=== PATIENT | female | born 2000 | race Caucasian/White ===

== ENCOUNTER 2020-11-11 07:10 | Outpatient (CLI) | payer BC, SELFPAY ==
--- NOTE | ~2020-11-11 | MR_ITS ---
EXAMINATION: MR cervical spine wo con DATE: 11/11/2020 08:34 INDICATION: Neck pain. TECHNIQUE: Magnetic resonance imaging (MRI) of the cervical spine was performed without intravenous c ontrast. Sequences included sagittal T2-weighted FSE, sagittal STIR FSE, sagittal T1-weighted FSE, ax ial MERGE, and axial T2-weighted FSE. COMPARISON: None FINDINGS: Bone alignment is normal. Vertebral body heights and intervertebral disc heights are normal . The spinal cord signal intensity is normal. The following disc levels are specifically discussed: C2-C3: The disc does not extend beyond the endplate margin. There is no uncovertebral joint osteoarth ritis. There is mild bilateral facet joint osteoarthritis. There is no neural foraminal stenosis. The re is no central canal stenosis. C3-C4: The disc does not extend beyond the endplate margin. There is mild right uncovertebral joint o steoarthritis. There is no facet joint osteoarthritis. There is mild right neural foraminal stenosis. There is no central canal stenosis. C4-C5: The disc does not extend beyond the endplate margin. There is mild left uncovertebral joint os teoarthritis. There is no facet joint osteoarthritis. There is no neural foraminal stenosis. There is no central canal stenosis. C5-C6: The disc does not extend beyond the endplate margin. There is no uncovertebral joint osteoarth ritis. There is no facet joint osteoarthritis. There is no neural foraminal stenosis. There is no akbar tral canal stenosis. C6-C7: The disc does not extend beyond the endplate margin. There is no uncovertebral joint osteoarth ritis. There is no facet joint osteoarthritis. There is no neural foraminal stenosis. There is no akbar tral canal stenosis. C7-T1: The disc does not extend beyond the endplate margin. There is no uncovertebral joint osteoarth ritis. There is mild left facet joint osteoarthritis. There is mild left neural foraminal stenosis. T here is no central canal stenosis. IMPRESSION: 1. Mild cervical spondylosis. Reviewed, dictated and finalized at location D.
--- NOTE | ~2020-11-11 | MR_ITS ---
EXAMINATION: MR brain/brain stem wo con DATE: 11/11/2020 08:12 INDICATION: Posterior headache. TECHNIQUE: Magnetic resonance imaging (MRI) of the brain and brainstem was performed without intraven ous contrast. Sequences included sagittal and axial T1-weighted FSE, axial diffusion-weighted FS EPI, axial T2*-weighted GRE, axial T2-weighted FLAIR Propeller, and axial T2-weighted Propeller. Apparent diffusion coefficient (ADC) maps were created. COMPARISON: None. FINDINGS: There is no intracranial hemorrhage, acute infarction, or abnormal intracranial mass lesion . The ventricles are normal in size. There is mild mucosal thickening in the ethmoid sinuses. The orb its are normal. The mastoid air cells are normal. IMPRESSION: 1. Normal brain. Reviewed, dictated and finalized at location D. IMPRESSION: 1. Normal brain.
== END 2020-11-11 07:11 | disposition home or self-care (01) ==
LOC: ANHIMG 07:21
PROVIDERS: PCP Internal Medicine; Visit Provider Nurse Practitioner Family
DX: M54.2 Cervicalgia (principal); G44.329 Chronic post-traumatic headache, not intractable; M79.18 Myalgia, other site; M47.812 Spondylosis without myelopathy or radiculopathy, cervical region
CPT/HCPCS: 70551; 72141

== ENCOUNTER 2021-03-30 15:46 | Emergency (ER) | payer BC, SELFPAY ==
[2021-03-30 16:05] VITALS: BP 129/76; PULSE 82; RESP 16; TEMP 36.8; O2SAT 100
--- NOTE | 2021-03-30 16:25 | ED.URI ---
HPI - URI/Sore Throat General Chief Complaint: Upper Respiratory Infection Stated Complaint: Sore Throat Time Seen by Provider: 03/30/21 16:25 Source: patient Mode of arrival: ambulatory Limitations: no limitations History of Present Illness HPI Narrative: Coni Perez is a 20 yo female with PMH of asthma who comes here with sore throat and requesting a strep test and a work note. States that she woke up with feeling like her right tonsil swollen. She is afebrile looks quite healthy but was not vaccinated for Covid Related Data Home Medications Medication Instructions Recorded Confirmed escitalopram oxalate [Lexapro] 20 mg PO DAILY 03/30/21 03/30/21 Allergies Allergy/AdvReac Type Severity Reaction Status Date / Time No Known Allergies Allergy Unverified 08/30/12 14:39 Review of Systems Review of Systems: CONSTITUTIONAL: Denies fever, chills, sweats. EYES: Denies visual changes, redness, discharge. ENT: Denies rhinorrhea, congestion, has sore throat, otalgia. CARDIOVASCULAR: Denies chest pain, palpitations, edema. RESPIRATORY: Denies dyspnea, wheezing, cough GASTROINTESTINAL: Denies abdominal pain, nausea, vomiting, diarrhea. GENITOURINARY: Denies dysuria, hematuria, abnormal discharge SKIN: Denies rash or itching. NEUROLOGIC: Denies numbness, or focal weakness. PSYCHIATRIC: Denies anxiety or depression. PMFSH Past Medical History Medical History No acute medical problems Family History Family History (Updated 03/30/21 @ 16:37 by Stephany Greenberg CNP) Father Hypertension Heart palpitations Other Heart disease Social History Social History (Updated 03/30/21 @ 16:37 by Stephany Greenberg CNP) Smoking status: Current every day smoker Tobacco type: e-cigarettes/vaping Alcohol intake: current Comments At time of signature, I agree with nursing past medical, surgical, social and family history. There is no relevant family history pertinent to the presenting complaint. Exam Narrative: GENERAL: This is a well-nourished, well-developed patient, no distress. HEAD: normocephalic, atraumatic. EYES: Sclera clear/white. Vision is grossly intact. EARS: External ears normal, auditory canals clear and without drainage, . Hearing grossly intact. NOSE: External nose normal without nasal discharge, nares without redness, no rhinorrhea. THROAT: Mucous membranes moist, posterior pharynx mild erythema no edema NECK: Neck supple, CARDIOVASCULAR: Regular rate and rhythm without murmurs, gallops, or rubs. RESPIRATORY: Clear to auscultation. Breath sounds equal bilaterally. No wheezes, rales, or rhonchi. GASTROINTESTINAL: Abdomen soft, non-tender, SKIN: warm, intact with no suspicious lesions or rash, good texture and turgor. NEURO: awake, alert, and oriented to person, place and time. There were no obvious focal neurologic abnormalities. Steady gait EXTREMITIES: Normal range of motion. BACK: Nontender without deformity Course Course Emergency Course: Patient comes here for complaints of sore throat Strep is negative Rapid Covid is negative Patient looks very healthy with no respiratory symptoms Given 1 day work note Vital Signs Vital signs: Vital Signs Temperature 98.2 F 03/30/21 16:05 Pulse Rate 82 03/30/21 16:05 Respiratory Rate 16 03/30/21 16:05 Blood Pressure 129/76 03/30/21 16:05 Pulse Oximetry 100 03/30/21 16:05 Temperature 98.2 F 03/30/21 16:05 Pulse Rate 82 03/30/21 16:05 Respiratory Rate 16 03/30/21 16:05 Blood Pressure 129/76 03/30/21 16:05 Pulse Oximetry 100 03/30/21 16:05 MDM - URI/Sore Throat Differential Diagnosis Differential diagnosis: Likely upper respiratory infection, otitis media, viral infection, influenza and other Lab Data Labs: Lab Results 03/30/21 Range/Units 16:13 POC SARS CoV-2 Ag Negative (Negative) Strep Screen Presumptive Negati
== END 2021-03-30 16:55 | disposition home or self-care (01) ==
PROVIDERS: Emergency Provider Nurse Practitioner; PCP Internal Medicine
DX: J02.9 Acute pharyngitis, unspecified (principal); Z20.822 Contact with and (suspected) exposure to COVID-19; F17.200 Nicotine dependence, unspecified, uncomplicated
CPT/HCPCS: 87081; 87426; 87880; 99213; C9803; G0463

== ENCOUNTER 2022-06-29 15:32 | Emergency (ER) | payer BC, SELFPAY ==
--- NOTE | ~2022-06-29 | XR_ITS ---
XR foot LT min 3V 06/29/2022 17:31 Indication: Left fifth toe pain Procedure: 4 views left foot Comparison: No prior studies for comparison. Findings: There is a transverse fracture of the left fifth proximal phalanx with mild lateral angulat ion. No other fracture. No significant soft tissue abnormality. No foreign bodies. Lisfranc joint int act. Impression: 1: Nondisplaced transverse fracture left fifth proximal phalanx with lateral angulation. Reviewed, dictated and finalized at location A. A[employer] CL[employer]ICAL DIETICIAN Impression: 1: Nondisplaced transverse fracture left fifth proximal phalanx with lateral an gulation.
[2022-06-29 15:42] VITALS: BP 139/82; PULSE 92; RESP 16; TEMP 36.5; O2SAT 100
--- NOTE | 2022-06-29 17:44 | ED.LOWEXIN ---
HPI - Extremity Injury (Lower) General Chief Complaint: Extremity Injury, Lower Stated Complaint: left foot injury Time Seen by Provider: 06/29/22 16:04 History of Present Illness HPI Narrative: 21-year-old female presents to the emergency room for evaluation of left foot pain. Patient states that she was leaving her bedroom this afternoon stubbed her toe on the door frame. Immediately noticed swelling and bruising to her fifth toe. Pain radiates into her midfoot. Related Data Allergies Allergy/AdvReac Type Severity Reaction Status Date / Time No Known Allergies Allergy Unverified 08/30/12 14:39 Review of Systems Review of Systems: CONSTITUTIONAL: Denies fever, chills, or sweats. EYES: Denies visual changes, redness, or discharge. ENT: Denies rhinorrhea, congestion, sore throat, or otalgia. CARDIOVASCULAR: Denies chest pain, palpitations, or edema. RESPIRATORY: Denies cough or dyspnea. GASTROINTESTINAL: Denies abdominal pain, nausea, vomiting, or diarrhea. GENITOURINARY: Denies dysuria or hematuria. SKIN: Denies rash or itching. MUSCULOSKELETAL: Denies back pain, joint pain, or myalgia. NEUROLOGIC: Denies headache, numbness, dizziness, or weakness. PSYCHIATRIC: Denies anxiety or depression. [facility] Past Medical History Medical History No acute medical problems Family History Family History Father Hypertension Heart palpitations Other Heart disease Social History Social History Smoking status: Current every day smoker Tobacco type: e-cigarettes/vaping Alcohol intake: current Exam Narrative: GENERAL: Well-appearing, well-nourished, no physical limitations, and in no acute distress. HEAD: Normocephalic, atraumatic. EYES: Conjunctivae normal, PERRLA and EOMI. CHEST: Clear to auscultation. No respiratory distress. No wheezes rales or rhonchi. HEART: Regular rate and rhythm. No murmur heard. Normal peripheral pulses. EXTREMITIES: left 5th toe: +TTP to proximal phalanx with STS, and mild displacement. Neurovascular is intact distally. LROM d/t pain SKIN: Warm, dry, no rash. No noted wounds NEURO: No focal deficits. Alert and oriented x3. MAEW. CN's II-XI intact bilaterally, normal gait PSYCH: Cooperative. Normal mood and affect. Course Vital Signs Vital signs: Vital Signs Temperature 36.5 C 06/29/22 15:42 Pulse Rate 92 06/29/22 15:42 Respiratory Rate 16 06/29/22 15:42 Blood Pressure 139/82 06/29/22 15:42 Pulse Oximetry 100 06/29/22 15:42 Oxygen Delivery Room Air 06/29/22 15:42 Temperature 36.5 C 06/29/22 15:42 Pulse Rate 92 06/29/22 15:42 Respiratory Rate 16 06/29/22 15:42 Blood Pressure 139/82 06/29/22 15:42 Pulse Oximetry 100 06/29/22 15:42 Oxygen Delivery Room Air 06/29/22 15:42 Discharge Plan Discharge Clinical Impression: Fracture of right toe Patient Disposition: Home, Self-Care Condition: Stable Instructions: Antibiotic Form Additional Instructions: Wear Ortho shoe for comfort. Follow-up with Dr. Rincon, the contract mail carrier next week. Keep toes wilver taped while you are using the Ortho shoe. May take Tylenol and ibuprofen as needed for discomfort. Prescriptions: No Action escitalopram oxalate [Lexapro] 10 mg tablet 10 mg PO DAILY Qty: 90 0RF Rx Instructions: Take one tablet po qd x 2 weeks, then increase to 2 tablets po qd Follow-up/Referrals: Sp Rincon DPM [Physician] - PHYSICIAN NOT ON STAFF,NONSTAFF [Primary Care Provider] - Time of Disposition: 17:53
== END 2022-06-29 18:26 | disposition home or self-care (01) ==
PROVIDERS: Emergency Provider Nurse Practitioner Family
DX: S92.515A Nondisplaced fracture of proximal phalanx of left lesser toe(s), initial encounter for closed fracture (principal); F17.290 Nicotine dependence, other tobacco product, uncomplicated; W22.09XA Striking against other stationary object, initial encounter
CPT/HCPCS: 73630; 99284

== ENCOUNTER 2022-07-10 11:30 | Emergency (ER) | payer BC, SELFPAY ==
--- NOTE | 2022-07-10 11:54 | PC.NURSE ---
pt states she is going to go home and return if her foot gets any worse
== END 2022-07-10 11:54 | disposition left against medical advice (07) ==
DX: Z53.21 Procedure and treatment not carried out due to patient leaving prior to being seen by health care provider (principal)
CPT/HCPCS: 99199

== ENCOUNTER 2022-07-12 11:32 | Emergency (ER) | payer BC, SELFPAY ==
--- NOTE | 2022-07-12 11:34 | ED.URI ---
HPI - URI/Sore Throat General Chief Complaint: Upper Respiratory Infection Stated Complaint: Cough Time Seen by Provider: 07/12/22 11:34 Source: patient and RN notes reviewed History of Present Illness HPI Narrative: patient is a 21-year-old female who presents to urgent care with complaints of cough and sore throat for 3 days. Patient did have a positive flu exposure. Patient has been taking Tessalon Perles, Mucinex, Tylenol and using her inhaler. No other acute complaints. No acute distress noted. Patient aware of the plan of care. Some parts of this dictation were generated by voice recognition software and may contain typographical and/or grammatical inaccuracies. Related Data Allergies Allergy/AdvReac Type Severity Reaction Status Date / Time amoxicillin Allergy Unknown Verified 07/12/22 11:56 hydrocodone Allergy Unknown Verified 07/12/22 11:56 Review of Systems Review of Systems: CONSTITUTIONAL: reports of chills and sweats EYES: Denies visual changes, redness, or discharge. ENT: reports congestion and sore throat CARDIOVASCULAR: Denies chest pain, palpitations, or edema. RESPIRATORY: reports of cough without dyspnea GASTROINTESTINAL: Denies abdominal pain, nausea, vomiting, or diarrhea. GENITOURINARY: Denies dysuria or hematuria. SKIN: Denies rash or itching. MUSCULOSKELETAL: Denies back pain, joint pain, or myalgia. NEUROLOGIC: Denies headache, numbness, or weakness. All other systems reviewed are negative, except as documented in HPI. PMFSH Past Medical History Medical History No acute medical problems Family History Family History Father Hypertension Heart palpitations Other Heart disease Social History Social History Smoking status: Current every day smoker Tobacco type: e-cigarettes/vaping Alcohol intake: current Comments At the time of my signature, I reviewed and agree with the nursing past medical, surgical, social, and family history. There is no relevant family history pertinent to the patient complaint. Exam Narrative: GENERAL: This is a well-nourished, well-developed patient, appears fatigued HEAD: normocephalic, atraumatic. EYES: PERRL. Sclera clear/white. Vision is grossly intact. EARS: External ears normal, auditory canals clear and without drainage, TMs normal without perforation. Hearing grossly intact. NOSE: External nose normal with no obvious nasal discharge, moderate erythema in the nares with clear to yellow rhinorrhea THROAT: Mucous membranes moist, posterior pharynx clear. mild postnasal drainage NECK: Neck supple, non-tender without lymphadenopathy CARDIOVASCULAR: Regular rate and rhythm without murmurs, gallops, or rubs. RESPIRATORY: Clear to auscultation. Breath sounds equal bilaterally. No wheezes, rales, or rhonchi. SKIN: warm, intact with no suspicious lesions or rash, good texture and turgor. NEURO: awake, alert, and oriented to person, place and time. There were no obvious focal neurologic abnormalities. EXTREMITIES: No clubbing, cyanosis, or edema. Course Course Level of Care: Express Care Visit Vital Signs Vital signs: Vital Signs Temperature 99.0 F 07/12/22 11:48 Pulse Rate 119 H 07/12/22 11:48 Respiratory Rate 18 07/12/22 11:48 Blood Pressure 153/94 H 07/12/22 11:48 Pulse Oximetry 98 07/12/22 11:48 Oxygen Delivery Room Air 07/12/22 11:48 Temperature 99.0 F 07/12/22 11:48 Pulse Rate 119 H 07/12/22 11:48 Respiratory Rate 18 07/12/22 11:48 Blood Pressure 153/94 H 07/12/22 11:48 Pulse Oximetry 98 07/12/22 11:48 Oxygen Delivery Room Air 07/12/22 11:48 reviewed- Patient is informed that they may have pre-hypertension or hypertension based on a blood pressure reading in the department. I recommend the patient call the primary care [email or web address]
[2022-07-12 11:48] VITALS: BP 153/94; PULSE 119; RESP 18; TEMP 37.2; O2SAT 98
== END 2022-07-12 12:32 | disposition home or self-care (01) ==
PROVIDERS: Emergency Provider Nurse Practitioner Family
DX: J11.1 Influenza due to unidentified influenza virus with other respiratory manifestations (principal); F17.209 Nicotine dependence, unspecified, with unspecified nicotine-induced disorders
CPT/HCPCS: 87804; 99213; G0463